=== PATIENT | male | born 1955 | race Caucasian/White ===

== ENCOUNTER 2021-09-24 22:40 | Emergency (ER) | payer OTHER, MEDICAID ==
[~2021-09-24] VITALS: Ht 172.7 cm; Wt 81.6 kg
[2021-09-24 22:40] VITALS: BP 142/72
--- NOTE | 2021-09-24 22:40 | NUR ---
TO LOBBY A/W BED VIA W/C
[2021-09-24] MEDS ORDERED: NAPR-54 PO (23:34)
--- NOTE | 2021-09-25 00:52 | NUR ---
DISCHARGED PER DR MARVIN
== END 2021-09-24 23:38 | disposition home or self-care (01) ==
LOC: MED 22:40
DX: S83.91XA Sprain of unspecified site of right knee, initial encounter (principal); F17.200 Nicotine dependence, unspecified, uncomplicated; Z71.6 Tobacco abuse counseling; Z79.1 Long term (current) use of non-steroidal anti-inflammatories (NSAID); X50.1XXA Overexertion from prolonged static or awkward postures, initial encounter; Y93.01 Activity, walking, marching and hiking; Y92.89 Other specified places as the place of occurrence of the external cause; Y99.8 Other external cause status
CPT/HCPCS: 73562; 99283